=== PATIENT | female | born 1955 | race Caucasian/White ===

== ENCOUNTER 2024-09-20 16:14 | Emergency (ER) | payer MEDICARE ==
[2024-09-20] MEDS ORDERED: Sodium Chloride 0.9% 10 ML Syringe FLUSH PRN (16:36)
[2024-09-20 16:51] LABS: PLATELET COUNT,PLT 109 K/uL (130-375); RED BLOOD CELL COUNT 3.47 M/uL (3.77-5.24); WHITE BLOOD CELL COUNT,WBC 8.1 K/uL (3.2-11.0)
[2024-09-20 17:08] LABS: ATYPICAL LYMPHOCYTES MANY; BAND ABSOLUTE MAN 0.16 K/uL; BAND PERCENT MAN 2 % (5-11); LYMPHOCYTES ABSOLUTE MAN 3.65 K/uL (0.8-3.3); LYMPHOCYTES PERCENT MAN 45 % (24-44); MONOCYTES ABSOLUTE MAN 0.32 K/uL (0.20-0.90); MONOCYTES PERCENT MAN 4 % (2-6); NEUTROPHILS ABSOLUTE MAN 3.97 K/uL (1.0-7.6); SEG NEUTROPHILS PERCENT MAN 49 % (36-66)
[2024-09-20 17:13] LABS: A/G RATIO 1.0 (1.2-2.2); ALANINE AMINOTRANSFERASE,ALT 44 U/L (12-78); ASPARTATE AMNIOTRANSFERASE,AST 34 U/L (15-37); BILIRUBIN TOTAL 0.3 mg/dL (0.2-1.0); BLOOD UREA NITROGEN,BUN 26 mg/dL (7-18); CARBON DIOXIDE,CO2 28 mmol/L (21-32); CHLORIDE,CL 103 mmol/L (100-108); CREATININE 0.9 mg/dL (0.6-1.0); EST CRCL DRUG DOSING (CG) 61.19 mL/min; ESTIMATED GFR 70 mL/min (>60); GLUCOSE RANDOM 104 mg/dL (74-106); LACTIC ACID 0.7 mmol/L (0.4-2.0); POTASSIUM,K 4.5 mmol/L (3.6-5.2); PROTEIN TOTAL,TP 6.4 g/dL (6.4-8.2); SODIUM,NA 138 mmol/L (140-148)
[2024-09-24 01:33] LABS: ANAPLASMA PHAGOCYTOPHILUM PCR Not Detected; BABESIA MICROTI BY PCR Not Detected; EHRLICHIA CHAFFEENSIS BY PCR Detected; EHRLICHIA EWINGII/CANIS BY PCR Not Detected; EHRLICHIA MURIS-LIKE BY PCR Not Detected
== END 2024-09-20 18:24 | disposition home or self-care (01) ==
LOC: JP.ED 16:14
DX: D69.6 Thrombocytopenia, unspecified (principal); E83.42 Hypomagnesemia; Z79.899 Other long term (current) drug therapy
CPT/HCPCS: 80053; 83605; 83735; 85025; 86140; 86618; 87468; 87469; 87484; 87651; 87798; 99284; U0002; 36415; 99283